=== PATIENT | female | born 1940 | race Caucasian/White ===

== ENCOUNTER 2017-01-06 15:11 | Observation (INO) | payer OTHER ==
[~2017-01-06] VITALS: Ht 134.6 cm; Wt 51.5 kg
[~2017-01-06 15:11] MED LIST: COREG3.125 M1 PO; CRESTOR5 MG PO; Coreg PO; Ecotrin PO; FOSAMAX70 MG PO; LISINOPRIL5 MG PO; LOW DOSE ASPIRI81 M2 PO; MULTIVITAMIN1 EAC2 PO; NORVASC5 MG PO; TYLENOL REGULA325 MG PO; Zestril,Prinivil PO; Zocor PO
[2017-01-06 16:31] LABS: HEMATOCRIT 45.6 % (36.0-46.0); MCH 30.7 PG (29.0-34.0); MCHC 34.4 G/DL (30.0-36.0); MCV 89.1 FL (83-99); MEAN PLAT.VOLUME 10.7 uM^3 (9.5-12.4); PLATELET COUNT 154 K/uL (156-360); RBC DIS.WIDTH-CV 12.2 % (11.8-14.6); RBC DIS.WIDTH-SD 39.8 % (39-53); RED BLOOD COUNT 5.12 M/uL (3.80-5.20); WHITE BLOOD COUNT 12.4 K/uL (4.1-10.2)
[2017-01-06 16:43] LABS: CHLORIDE 101 mEq/L (99-109); POTASSIUM 4.3 mEq/L (3.7-5.4); SODIUM 134 mEq/L (136-147)
[2017-01-06 16:45] LABS: GLUCOSE 110 mg/dL (70-99)
[2017-01-06 16:46] LABS: ANION GAP 11 MEQ/L (2-14)
[2017-01-06 16:49] LABS: GFR ESTIMATE (CALCULATED) > 59 mL/min/; UREA NITROGEN (BUN) 9 mg/dL (9-23)
[2017-01-06 16:50] LABS: ALKALINE PHOSPHATASE 39 IU/L (3-129)
[2017-01-06 16:52] LABS: DIRECT BILIRUBIN 0.3 mg/dL (0.0-0.3)
[2017-01-06 16:53] LABS: LIPASE 34 U/L (1.0-51.0); TROP-I INTERPRETATION NEGATIVE; TROPONIN-I < 0.01 ng/mL (0.0-0.30)
[2017-01-06] MEDS ORDERED: NORCO 5/3251 TABLET PO (20:15)
[2017-01-06] MEDS ORDERED: LISINOPRIL20 MG PO (21:30)
[2017-01-06] MEDS ORDERED: PRAVASTATIN SOD10 MG PO (21:30)
[2017-01-06] MEDS ORDERED: LOW DOSE ASPIRI81 M1 PO (21:30)
[2017-01-06] MEDS ORDERED: CALCIUM 500 +1 EACH PO (21:31)
[2017-01-06] MEDS ORDERED: FOSAMAX70 MG PO (21:31)
[2017-01-06] MEDS ORDERED: VITAMIN D31000 UNIT PO (21:31)
[2017-01-06] MEDS ORDERED: CILOSTAZOL50 MG PO (21:32)
[2017-01-06 22:48] LABS: TROP-I INTERPRETATION NEGATIVE; TROPONIN-I 0.02 ng/mL (0.0-0.30)
[2017-01-07 04:36] LABS: C DIFF TOXIN NEGATIVE (NEGATIVE)
[2017-01-07 04:38] LABS: PROBE CHECK PASS; SPECIMEN PROCESSING CONTROL PASS
[2017-01-07 05:08] LABS: HEMATOCRIT 38.8 % (36.0-46.0); MCH 30.6 PG (29.0-34.0); MCV 89.8 FL (83-99); MEAN PLAT.VOLUME 11.1 uM^3 (9.5-12.4); PLATELET COUNT 134 K/uL (156-360); RBC DIS.WIDTH-CV 12.5 % (11.8-14.6); RBC DIS.WIDTH-SD 41.5 % (39-53); RED BLOOD COUNT 4.32 M/uL (3.80-5.20); WHITE BLOOD COUNT 12.6 K/uL (4.1-10.2)
[2017-01-07 05:11] LABS: CHLORIDE 103 mEq/L (99-109); POTASSIUM 3.6 mEq/L (3.7-5.4); SODIUM 133 mEq/L (136-147)
[2017-01-07 05:13] LABS: GLUCOSE 128 mg/dL (70-99)
[2017-01-07 05:14] LABS: ANION GAP 9 MEQ/L (2-14)
[2017-01-07 05:16] LABS: ALKALINE PHOSPHATASE 33 IU/L (3-129)
[2017-01-07 05:17] LABS: GFR ESTIMATE (CALCULATED) 57 mL/min/
[2017-01-07 05:18] LABS: UREA NITROGEN (BUN) 19 mg/dL (9-23)
[2017-01-07 05:19] LABS: TROP-I INTERPRETATION NEGATIVE; TROPONIN-I < 0.01 ng/mL (0.0-0.30)
[2017-01-07 05:21] LABS: TOTAL BILIRUBIN 0.6 mg/dL (0.0-1.0)
[2017-01-07 08:00] VITALS: BP 119/56
[2017-01-07 08:45] VITALS: BP 119/56
[2017-01-07 10:47] VITALS: BP 123/58
== END 2017-01-07 12:30 | disposition home or self-care (01) ==
LOC: EME 15:11 → EDOF 22:20 → 5WEST 22:20
PROVIDERS: Internal Medicine; Physician Assistant; Physician Assistant Medical
DX: K59.00 Constipation, unspecified (principal); F17.200 Nicotine dependence, unspecified, uncomplicated; Z79.82 Long term (current) use of aspirin; I10 Essential (primary) hypertension; E78.00 Pure hypercholesterolemia, unspecified; Z91.14 Patient's other noncompliance with medication regimen
CPT/HCPCS: 71020; 71275; 72129; 74174; 80048; 80053; 80076; 83690; 83880; 84484; 85027; 87493; 93005; 99281; 99285; G0378; J1885; J2405; J3010; J7030

== ENCOUNTER 2017-01-09 13:56 | Emergency (ER) | payer OTHER ==
[~2017-01-09] VITALS: Ht 162.6 cm; Wt 50.0 kg
[~2017-01-09 13:56] MED LIST changes: +CALCIUM 500 +1 EACH PO; +CILOSTAZOL50 MG PO; +LISINOPRIL20 MG PO; +LOW DOSE ASPIRI81 M1 PO; +NORCO 5/3251 TABLET PO; +PRAVASTATIN SOD10 MG PO; +VITAMIN D31000 UNIT PO
[2017-01-09] MEDS ORDERED: TRAMADOL HCL50 MG PO (14:33)
[2017-01-09] MEDS ORDERED: NEXIUM40 MG PO (14:33)
[2017-01-09] MEDS ORDERED: ZOFRAN ODT4 MG PO (14:33)
[2017-01-09 14:52] VITALS: BP 225/74
== END 2017-01-09 14:56 | disposition home or self-care (01) ==
LOC: EME 13:56
DX: M54.5 Low back pain (principal); G89.29 Other chronic pain; R11.0 Nausea; I10 Essential (primary) hypertension
CPT/HCPCS: 99281; 99284